=== PATIENT | female | born 1930 | race African-American/Black ===

== ENCOUNTER 2017-03-28 13:54 | Inpatient (IN) | payer MEDICARE, MEDICAID ==
[~2017-03-28] VITALS: Ht 162.6 cm; Wt 59.4 kg
[~2017-03-28 13:54] MED LIST: AMLO10TA4 PO; AMLO5TAB4 PO; CARV25TA47 PO; HYDR-4133 PO; SIMV10TA6 PO
[2017-03-28 14:27] VITALS: BP 139/50
[2017-03-28] MEDS ORDERED: ONDANSETRON HCL 4MG/2ML VIAL IV PRN (14:45)
[2017-03-28] MEDS ORDERED: HYDROMORPHONE HCL/PF 2MG/ML CPJ IV PRN (14:45)
[2017-03-28] MEDS ORDERED: CLONIDINE 0.1MG TABLET PO PRN (14:45)
[2017-03-28] MEDS ORDERED: ACETAMINOPHEN 325MG TABLET PO PRN (14:45)
[2017-03-28 15:39] LABS: BASOPHILS % 0.5 % (0.0-2.0); EOSINOPHILS % 1.3 % (0.0-5.0); HEMATOCRIT. 21.2 % (36.0-48.0); LYMPHOCYTES % 28.7 % (20.0-50.0); MEAN CORPUSCULAR HEMOGLOBIN 32.7 pg (28.0-32.0); MEAN PLATELET VOLUME 8.9 fl (7.4-10.4); MONOCYTES % 8.2 % (2.0-8.0); NEUTROPHILS % 61.3 % (40.0-76.0); PLATELET 90 x1000/uL (130-400); RED BLOOD CELL COUNT 2.06 mill/uL (4.2-5.4); RED CELL DISTRIBUTION WIDTH 14.8 % (11.6-14.6)
[2017-03-28 15:44] LABS: HEMOGLOBIN. 6.7 g/dL (12.0-16.0)
[2017-03-28 15:48] LABS: PHOSPHORUS 4.7 mg/dL (2.5-4.9)
[2017-03-28 17:40] LABS: INR 1.1; PARTIAL THROMBOPLASTIN TIME 28.3 sec (23.4-31.0); PROTHROMBIN TIME 11.2 sec (9.4-11.6)
[2017-03-28 18:00] VITALS: BP 134/52
[2017-03-28 18:15] VITALS: BP 138/91
[2017-03-28 20:00] VITALS: BP 97/49
[2017-03-28] MEDS ORDERED: DOCU-150 PO (20:17)
[2017-03-28] MEDS ORDERED: FERR325T6 PO (20:18)
[2017-03-28] MEDS ORDERED: DONE10TA36 PO (20:20)
[2017-03-28] MEDS ORDERED: MEMA5TAB15 PO (20:20)
[2017-03-28] MEDS ORDERED: CARV12.545 PO (20:22)
[2017-03-28] MEDS ORDERED: DOCUSATE SODIUM 100MG CAPSULE PO PRN (20:30)
[2017-03-28 20:44] LABS: HEPATITIS B SURFACE ANTIGEN NEGATIVE
[2017-03-28 21:12] LABS: HEPATITIS B CORE AB IGM NEGATIVE
[2017-03-28 21:14] LABS: HEPATITIS A AB IGM NEGATIVE (NEGATIVE)
[2017-03-28 21:19] LABS: CLARITY URINE CLOUDY (CLEAR); COLOR URINE YELLOW (YELLOW); GLUCOSE URINE NEGATIVE (NEGATIVE); KETONES URINE NEGATIVE (NEGATIVE); LEUKOCYTE ESTERASE URINE 3+ (NEGATIVE); NITRITE URINE NEGATIVE (NEGATIVE); OCCULT BLOOD URINE TRACE (NEGATIVE); PROTEIN URINE 3+ (NEGATIVE); SPECIFIC GRAVITY URINE 1.015 (1.005-1.030); UROBILINOGEN URINE 0.2 E.U./dL (0.2-1.0)
[2017-03-28 21:45] VITALS: BP 137/55
[2017-03-28] MEDS: ATORVASTATIN CALCIUM 10MG TABLET PO SCH (23:26)
[2017-03-28 23:30] LABS: HEMATOCRIT 23.6 % (36.0-48.0); HEMOGLOBIN 7.8 g/dL (12.0-16.0)
[2017-03-29] VITALS (9 sets, daily range): BP systolic 128–153; BP diastolic 53–61
[2017-03-29] MEDS: CEFTRIAXONE 1 G PREMIX 50 ML IV SCH (06:49)
[2017-03-29] MEDS: FERROUS SULFATE 325MG TABLET PO SCH ×3 (06:49→17:54)
[2017-03-29 07:17] LABS: HEMATOCRIT 26.3 % (36.0-48.0); HEMOGLOBIN 8.7 g/dL (12.0-16.0)
[2017-03-29 07:32] LABS: BASOPHILS % 0.5 % (0.0-2.0); EOSINOPHILS % 1.5 % (0.0-5.0); HEMATOCRIT. 26.4 % (36.0-48.0); HEMOGLOBIN. 8.7 g/dL (12.0-16.0); LYMPHOCYTES % 26.6 % (20.0-50.0); MEAN CORPUSCULAR HEMOGLOBIN 30.8 pg (28.0-32.0); MEAN CORPUSCULAR VOLUME 93.4 fL (81.0-99.0); MEAN PLATELET VOLUME 9.1 fl (7.4-10.4); MONOCYTES % 8.5 % (2.0-8.0); NEUTROPHILS % 62.9 % (40.0-76.0); PLATELET 87 x1000/uL (130-400); RED BLOOD CELL COUNT 2.82 mill/uL (4.2-5.4); RED CELL DISTRIBUTION WIDTH 21.1 % (11.6-14.6)
[2017-03-29 08:12] LABS: CARBON DIOXIDE 19 mEq/L (21-32); CHLORIDE 122 mEq/L (98-107); TROPONIN I < 0.02 ng/mL (0.00-0.04)
[2017-03-29] MEDS ORDERED: MEDICATION NOT ON FORMULARY EA (Simvastatin 10 MG) PO SCH (09:00)
[2017-03-29] MEDS ORDERED: CARVEDILOL 25MG TABLET PO SCH (09:00)
[2017-03-29] MEDS ORDERED: AMLODIPINE 10MG TABLET PO SCH (09:00)
[2017-03-29] MEDS: DONEPEZIL HCL 10MG TABLET PO SCH (09:46)
[2017-03-29] MEDS: CARVEDILOL 12.5MG TABLET PO SCH ×2 (09:47→21:22)
[2017-03-29] MEDS: MEMANTINE HCL 5MG TABLET PO SCH (09:47)
[2017-03-29] MEDS: HYDRALAZINE HCL 50MG TABLET PO SCH ×3 (09:47→17:55)
[2017-03-29] MEDS: AMLODIPINE 5MG TABLET PO SCH (09:48)
[2017-03-29] MEDS ORDERED: SODIUM POLYSTYRENE SULFONATE 15 G/60 ML BOT PO SCH (13:15)
[2017-03-29 16:11] LABS: HEMOGLOBIN 9.2 g/dL (12.0-16.0)
[2017-03-29] MEDS ORDERED: SORBITOL 70% SOLN 30ML PO NR (16:45)
[2017-03-29] MEDS ORDERED: DEXTROSE 50% WATER 50ML SYRINGE IV PRN (20:30)
[2017-03-29] MEDS: INSULIN LISPRO 100 UNITS/ML SUBCUT SCH (21:00)
[2017-03-29] MEDS: ATORVASTATIN CALCIUM 10MG TABLET PO SCH (21:22)
[2017-03-29] MEDS: BLOOD SUGAR DIAGNOSTIC STRIP TEST SCH (21:27)
[2017-03-29 23:00] LABS: HEMATOCRIT 26.3 % (36.0-48.0); HEMOGLOBIN 8.7 g/dL (12.0-16.0)
[2017-03-30] VITALS: BP 144/49
[2017-03-30] MEDS: IPRATROPIUM/ALBUTEROL 0.5-3(2.5)MG/3ML NEB INH SCH ×4 (00:51→20:41)
[2017-03-30 04:00] VITALS: BP 117/47
[2017-03-30] MEDS: INSULIN LISPRO 100 UNITS/ML SUBCUT SCH ×4 (05:59→21:00)
[2017-03-30] MEDS: BLOOD SUGAR DIAGNOSTIC STRIP TEST SCH ×4 (05:59→21:00)
[2017-03-30] MEDS: CEFTRIAXONE 1 G PREMIX 50 ML IV SCH (06:33)
[2017-03-30 08:00] VITALS: BP 151/58
[2017-03-30] MEDS ORDERED: SORBITOL 70% SOLN 30ML PO NR (10:00)
[2017-03-30] MEDS: HYDRALAZINE HCL 50MG TABLET PO SCH ×3 (10:04→17:00)
[2017-03-30] MEDS: FERROUS SULFATE 325MG TABLET PO SCH ×3 (10:04→17:50)
[2017-03-30] MEDS: DONEPEZIL HCL 10MG TABLET PO SCH (10:04)
[2017-03-30] MEDS: AMLODIPINE 5MG TABLET PO SCH (10:05)
[2017-03-30] MEDS: MEMANTINE HCL 5MG TABLET PO SCH (10:05)
[2017-03-30] MEDS: CARVEDILOL 12.5MG TABLET PO SCH ×2 (10:05→21:01)
[2017-03-30 12:00] VITALS: BP 99/48
[2017-03-30 16:00] VITALS: BP 128/74
[2017-03-30 16:06] LABS: BASOPHILS % 0.4 % (0.0-2.0); EOSINOPHILS % 0.9 % (0.0-5.0); HEMATOCRIT. 27.7 % (36.0-48.0); HEMOGLOBIN. 9.1 g/dL (12.0-16.0); LYMPHOCYTES % 24.5 % (20.0-50.0); MEAN CORPUSCULAR HEMOGLOBIN 31.1 pg (28.0-32.0); MEAN CORPUSCULAR VOLUME 95.1 fL (81.0-99.0); MEAN PLATELET VOLUME 9.4 fl (7.4-10.4); MONOCYTES % 8.3 % (2.0-8.0); NEUTROPHILS % 65.9 % (40.0-76.0); PLATELET 82 x1000/uL (130-400); RED BLOOD CELL COUNT 2.92 mill/uL (4.2-5.4); RED CELL DISTRIBUTION WIDTH 20.6 % (11.6-14.6)
[2017-03-30 20:00] VITALS: BP 135/55
[2017-03-30] MEDS ORDERED: EPOETIN ALFA 10000UNITS/ML VIAL SUBCUT SCH (21:00)
[2017-03-30] MEDS: ATORVASTATIN CALCIUM 10MG TABLET PO SCH (21:01)
[2017-03-31] MEDS: IPRATROPIUM/ALBUTEROL 0.5-3(2.5)MG/3ML NEB INH SCH ×4 (01:21→20:20)
[2017-03-31 04:00] VITALS: BP 108/60
[2017-03-31] MEDS ORDERED: NA PHOS,M-B/NA PHOS,DI-BA ENEMA 118ML PR NR (04:30)
[2017-03-31] MEDS ORDERED: LACTULOSE 20G/30ML UDC PO NR (04:30)
[2017-03-31] MEDS: CEFTRIAXONE 1 G PREMIX 50 ML IV SCH (06:35)
[2017-03-31] MEDS: BLOOD SUGAR DIAGNOSTIC STRIP TEST SCH ×5 (06:36→22:32)
[2017-03-31] MEDS: INSULIN LISPRO 100 UNITS/ML SUBCUT SCH ×5 (06:37→22:32)
[2017-03-31] MEDS: FERROUS SULFATE 325MG TABLET PO SCH ×3 (06:41→17:09)
[2017-03-31 08:00] VITALS: BP 146/53
[2017-03-31] MEDS: CARVEDILOL 12.5MG TABLET PO SCH ×2 (08:27→22:31)
[2017-03-31] MEDS: DONEPEZIL HCL 10MG TABLET PO SCH (08:30)
[2017-03-31] MEDS: AMLODIPINE 5MG TABLET PO SCH (08:30)
[2017-03-31] MEDS: MEMANTINE HCL 5MG TABLET PO SCH (08:30)
[2017-03-31] MEDS: HYDRALAZINE HCL 50MG TABLET PO SCH ×3 (08:32→17:10)
[2017-03-31 09:40] LABS: BASOPHILS % 0.5 % (0.0-2.0); EOSINOPHILS % 1.9 % (0.0-5.0); HEMATOCRIT. 28.5 % (36.0-48.0); HEMOGLOBIN. 9.1 g/dL (12.0-16.0); LYMPHOCYTES % 23.8 % (20.0-50.0); MEAN CORPUSCULAR HEMOGLOBIN 30.5 pg (28.0-32.0); MEAN CORPUSCULAR VOLUME 95.1 fL (81.0-99.0); MEAN PLATELET VOLUME 9.2 fl (7.4-10.4); NEUTROPHILS % 64.8 % (40.0-76.0); PLATELET 90 x1000/uL (130-400); RED BLOOD CELL COUNT 2.99 mill/uL (4.2-5.4); RED CELL DISTRIBUTION WIDTH 20.7 % (11.6-14.6)
[2017-03-31 12:00] VITALS: BP 150/58
[2017-03-31 16:00] VITALS: BP 145/49
[2017-03-31 20:00] VITALS: BP 97/52
[2017-03-31] MEDS: ATORVASTATIN CALCIUM 10MG TABLET PO SCH (22:30)
[2017-04-01] VITALS: BP 147/50
[2017-04-01] MEDS: IPRATROPIUM/ALBUTEROL 0.5-3(2.5)MG/3ML NEB INH SCH ×2 (02:00→09:03)
[2017-04-01 04:00] VITALS: BP 149/54
[2017-04-01] MEDS: FERROUS SULFATE 325MG TABLET PO SCH (06:11)
[2017-04-01] MEDS: CEFTRIAXONE 1 G PREMIX 50 ML IV SCH (06:11)
[2017-04-01 08:00] VITALS: BP 156/49
[2017-04-01] MEDS: CARVEDILOL 12.5MG TABLET PO SCH (09:00)
[2017-04-01 09:50] LABS: BASOPHILS % 0.5 % (0.0-2.0); EOSINOPHILS % 1.8 % (0.0-5.0); HEMATOCRIT. 28.9 % (36.0-48.0); HEMOGLOBIN. 9.5 g/dL (12.0-16.0); LYMPHOCYTES % 23.2 % (20.0-50.0); MEAN CORPUSCULAR HEMOGLOBIN 31.3 pg (28.0-32.0); MONOCYTES % 9.1 % (2.0-8.0); NEUTROPHILS % 65.4 % (40.0-76.0); PLATELET 81 x1000/uL (130-400); RED BLOOD CELL COUNT 3.04 mill/uL (4.2-5.4)
[2017-04-01] MEDS: MEMANTINE HCL 5MG TABLET PO SCH (10:04)
[2017-04-01] MEDS: HYDRALAZINE HCL 50MG TABLET PO SCH (10:04)
[2017-04-01] MEDS: AMLODIPINE 5MG TABLET PO SCH (10:04)
[2017-04-01] MEDS: DONEPEZIL HCL 10MG TABLET PO SCH (10:04)
[2017-04-01 10:51] VITALS: BP 156/49
== END 2017-04-01 11:45 | disposition home or self-care (01) | DRG 291 ==
LOC: 5WST 13:54
PROVIDERS: ADMIT Internal Medicine Nephrology; ATTEND Internal Medicine Nephrology
PROC: 30233N1 Transfusion of Nonautologous Red Blood Cells into Peripheral Vein, Percutaneous Approach (ICD-10-PCS; principal; 2017-03-28)
DX: I13.2 Hypertensive heart and chronic kidney disease with heart failure and with stage 5 chronic kidney disease, or end stage renal disease (principal); E43 Unspecified severe protein-calorie malnutrition; E87.0 Hyperosmolality and hypernatremia; N18.5 Chronic kidney disease, stage 5; E87.1 Hypo-osmolality and hyponatremia; K83.8 Other specified diseases of biliary tract; N39.0 Urinary tract infection, site not specified; E11.22 Type 2 diabetes mellitus with diabetic chronic kidney disease; E87.5 Hyperkalemia; I50.9 Heart failure, unspecified; K56.41 Fecal impaction; D63.1 Anemia in chronic kidney disease; Z79.899 Other long term (current) drug therapy; Z99.2 Dependence on renal dialysis
CPT/HCPCS: 36415; 71010; 74176; 74181; 80048; 80053; 81001; 82270; 82962; 83540; 83550; 83735; 84100; 84484; 85014; 85018; 85025; 85610; 85730; 86705; 86709; 86803; 86850; 86900; 86920; 87040; 87340; 93306; 93970; 94640; 97163; J0696; J0885; J7040; J7050; J7620; P9016